=== PATIENT | female | born 1935 | race Caucasian/White ===

== ENCOUNTER 2023-04-16 18:47 | Emergency (ER) | payer MEDICARE, BC ==
[~2023-04-16] VITALS: Ht 152.4 cm; Wt 48.6 kg
[~2023-04-16 18:47] MED LIST: ALLEGRA180 MG PO; ASPIRIN 32325 MG/TA1 PO; ASPIRIN 32325 MG/TAB PO; CALCIUM 600600 M2 PO; COSOPT EYE DROPS OU; FLONASE NASAL S16 GM NS; HCTZ PO; KLOR-CON SPRIN10 MEQ PO; LIPITOR 10MG10 MG PO; LISINOPRIL20 MG PO; MULTI-VITAMIN1 CTB PO; NORCO 325 MG-7.1 TAB PO; REFRESH DRY EYE15 ML OP; REFRESH PM1 OI1 OP; RESTASIS 0.4 M0.4 M1 OP; ULTRAM 50MG TAB50 MG PO; VITAMIN D1000 IU PO; XALATAN EYE DROPS OU
[2023-04-16 18:54] VITALS: TEMP 97.7
[2023-04-16] MEDS ORDERED: LASIX 20MG TABL20 MG PO (20:13)
[2023-04-16] MEDS ORDERED: PRILOSEC 20MG20 MG PO (20:15)
[2023-04-16] MEDS ORDERED: LOPRESSOR 225 MG/TAB PO (20:17)
[2023-04-16] MEDS ORDERED: TIROSINT25 MC1 PO (20:20)
[2023-04-16 20:57] VITALS: BP 164/81; PULSE 73
== END 2023-04-16 20:57 | disposition home or self-care (01) ==
LOC: COL.ER 18:47
DX: S51.012A Laceration without foreign body of left elbow, initial encounter (principal); S00.03XA Contusion of scalp, initial encounter; M25.532 Pain in left wrist; M25.552 Pain in left hip; Z79.02 Long term (current) use of antithrombotics/antiplatelets; Z86.73 Personal history of transient ischemic attack (TIA), and cerebral infarction without residual deficits; W01.198A Fall on same level from slipping, tripping and stumbling with subsequent striking against other object, initial encounter; Y92.002 Bathroom of unspecified non-institutional (private) residence as the place of occurrence of the external cause